=== PATIENT | male | born 1990 | race Caucasian/White ===

== ENCOUNTER 2017-10-26 13:00 | Emergency (ER) | payer OTHER | END 2017-10-26 15:00 | disposition home or self-care (01) | LOC: ER 13:00 | DX: S09.90XA Unspecified injury of head, initial encounter (principal); Y08.89XA Assault by other specified means, initial encounter; Y93.89 Activity, other specified; Y99.8 Other external cause status; Y92.89 Other specified places as the place of occurrence of the external cause | CPT/HCPCS: 70450; 99284-25 ==